=== PATIENT | female | born 1970 | race Caucasian/White ===

== ENCOUNTER 2016-10-30 12:16 | Day surgery (SDC) | payer OTHER ==
[2016-10-30] VITALS (7 sets, daily range): BP systolic 106–112; BP diastolic 57–71; PULSE 54–76; RESP 13–16; O2SAT 96–100
[~2016-10-30] VITALS: Ht 167.6 cm; Wt 84.0 kg
[~2016-10-30 12:16] MED LIST: MULT-1018 PO
[2016-10-30] MEDS ORDERED: EPHEDrine/NS 5 mg/mL 5 mL Syringe ONE (12:17)
[2016-10-30] MEDS ORDERED: Propofol 10,000 mCg/mL 20 mL Inj ONE (12:17)
[2016-10-30] MEDS ORDERED: fentaNYL-PF 50 mCg/mL 2 mL Inj ONE (12:17)
[2016-10-30] MEDS ORDERED: Ondansetron 2 mg/mL 2 mL Inj ONE (12:17)
[2016-10-30] MEDS ORDERED: IBUP800T28 PO (12:24)
[2016-10-30] MEDS: Lactated Ringer's 1,000 ML IV SCH ×3 (12:49→15:51)
[2016-10-30] MEDS ORDERED: Lactated Ringer's 500 ML IV PRN (14:39)
[2016-10-30] MEDS ORDERED: Lactated Ringer's 1,000 ML IV SCH (14:39)
--- NOTE | 2016-10-30 14:39 | PCM.HPANE ---
Patient Data Date of Service: October 30, 2016 Surgeon Admitting Provider: Attending Provider:Zee Siegel MD Primary Care Physician:Mark Rai MD Other Provider:Josh Coronado Anesthesia Reason for Visit Postcoital Bleeding, Friable Cervix Ht/WT & BMI Height (Feet): 5 Height (Inches): 6 Weight (Kilograms): 84 Body Mass Index 29.00 Allergies Coded Allergies: No Known Allergies (Unverified Allergy, Unknown, 04/15/14) Past Anesthesia History Anesthesia History: Denies:: Anesthesia Reactions Diabetes History Hx Diabetes?: No Medications Hypertension Medication: No Home Meds Incl Beta Juan: No Reported Medications Ibuprofen 800 Mg [id number] Mg PO TID PRN For Pain Ref 0 10/30/16 Multivitamin (Multi Vitamin Daily)1 Each Tablet1 Each PO DAILY 30 Days Ref 0 10/28/16 Discontinued Scripts Cyclobenzaprine 10 Mg Pavomd19 Mg PO TID PRN Spasm #12 TABLET Prov:Yang Ulloa DO 08/07/15 Ibuprofen 800 Mg [id number] Mg PO TID PRN For Pain #30 TABLET Ref 0 Prov:Yang Ulloa DO 08/07/15 History History of ENT Problems?: Yes HEENT History: Denies:: Abnormal Airway Difficult Intubation Denture Type: None Teeth Condition: Within Normal Limits Hx of Heart Problems?: No Cardiovascular History: Denies:: Chest Pain Coronary Artery Disease Hx of Respiratory Problem?: No Respiratory History: Denies:: Oxygen Administration Use of C-PAP Machine Hx Neurologic Problems?: No Hx of GI Problems?: No Hx of Problems?: No Genitourinary History: Denies:: Kidney Stones Urinary Tract Infection (prior hx of- not current) Female Hx: Denies:: Currently (TUBAL) Endometriosis Problems with Breasts? Hx Musculoskeletal Problems?: No Hx of Psycho/Social Problems?: No Hx Surgeries?: Yes (tubal) Hx Any Other Health Problems?: Yes Other History: Denies:: Cancer Thyroid Disease Hx Diabetes: No Hx Alcohol Use: NoHx Substance Use: No Smoking Status: Former Smoker Have You Smoked inLast 12 mo: No Stop/Bang Treated for Sleep Apnea?: No Do You Have a CPAP Machine?: No P-Blood Pressure: treated: No B- Body Mass Index > 35 kg/m2: No A- Age over 50: No N- Neck Large Circumference: No G- Gender Male: No KATIA Risk Assessment: Low Risk, <3 Yes Risk Assessment Category Category 1A: Patient has history of documented sleep apnea, and HAS NOT received any narcotic, sedative or anesthesia administration during this stay. Category 1B: Patient has history of documented sleep apnea, and HAS received any narcotic , sedative or anesthesia administration during this stay Category 2: Patient has SUSPECTED Obstructive Sleep Apnea, and HAS received any narcotic , sedative or anesthesia administration during this stay. Category 3: Patient has SUSPECTED Obstructive Sleep Apnea and HAS NOT received narcotic, sedative or anesthesia administration during this stay. Category 4: Outpatient in Procedural Areas with known sleep apnea or who screen positive for High Risk via the STOP/BANG questionnaire. Exam Exam Vital Signs Vital Signs Date Time Temp Pulse Resp B/P Pulse Ox O2 Delivery O2 Flow Rate FiO2 10/30/16 12:32 36.4 54 16 106/70 96 Room Air General Appearance: Alert, Oriented X3, Cooperative HEENT/AIRWAY: MP 1, Neck Movement, Mouth Opening Lungs: Clear to Auscultation, Normal Air Movement Heart: Regular Rate/Rhythm, Normal S1, Normal S2 Meds/Labs/Diagnostics Admission Meds Current Medications Lactated Ringer's (Lr) 1,000 ml @ 120 mls/hr [id number] IV Last administered on t 12:49; Start 10/30/16 at 05:00; Stop 10/30/16 at 13:19 Plan Impression Patient chart reviewed, patient interviewed and anesthestic plan with risks, benefits, and alternatives discussed, and informed consent obtained. NPO per Anesth. Guidelines: Yes ASA Physical Status: ASA1 Normal Healthy Anesthetic Plan: GA Bene/Risks/Altern/Consents: Yes HP Complete Prior to Induction: Yes Lonny Henson MD October 30, 2016 13:06
[2016-10-30] MEDS ORDERED: Dexamethasone 4 mg/mL Inj IVPUSH PRN (14:40)
[2016-10-30] MEDS ORDERED: fentaNYL-PF 50 mCg/mL 2 mL Inj IVPUSH PRN (14:40)
[2016-10-30] MEDS ORDERED: Labetalol 5 mg/mL 4 mL Inj IV PRN (14:40)
[2016-10-30] MEDS ORDERED: EPHEDrine Sulfate 50 mg/mL Inj IVPUSH PRN (14:40)
[2016-10-30] MEDS ORDERED: hydrALAZINE 20 mg/mL Inj IVPUSH PRN (14:40)
[2016-10-30] MEDS ORDERED: Atropine 0.4 mg/mL Inj IVPUSH PRN (14:40)
[2016-10-30] MEDS ORDERED: Ondansetron 2 mg/mL 2 mL Inj IVPUSH PRN (14:40)
[2016-10-30] MEDS ORDERED: HYDROmorphone 1 mg/mL Inj IVPUSH PRN (14:40)
[2016-10-30] MEDS ORDERED: Phenylephrine 10,000 mCg/mL Inj IVPUSH PRN (14:40)
[2016-10-30] MEDS ORDERED: MetoCLOpramide 5 mg/mL 2 mL Inj IVPUSH PRN (14:40)
--- NOTE | 2016-10-30 15:52 | PCM.ANEP1 ---
Post Anesthesia Phase 1 PACU Phase 1 Assessment Date of Service: October 30, 2016 Vital Signs PACU BP 112/70, HR 85, RR 10 T 36.3, 100% 10L Vital Signs Date Time Temp Pulse Resp B/P Pulse Ox O2 Delivery O2 Flow Rate FiO2 10/30/16 12:32 36.4 54 16 106/70 96 Room Air Anesthetic Administered: GA Level of Alertness: Awake, talking MICHAELS's with Equal Strength: No Pain: No Nausea or Vomiting: No Cardiovascular Function and Hy: Yes Oxygen Delivery: Simple Mask Lungs: Normal Air Movement Dermatome Level: Full Sensation Complications: No Follow up Care: No Patient Instructions Provided: Yes Lonny Henson MD October 30, 2016 15:52
--- NOTE | 2016-10-30 16:11 | PCM.DIOB ---
Obstetrical Disch Instruction Date of Service: October 30, 2016 Dates of Hospitalization Date of Hospital Admission Out Patient surgery Providers Admitting Physician: Primary Care Physician: Mark Rai MD Attending Physician: Zee Siegel MD Discharge Diagnosis Discharge Diagnosis Status post LEEP for friable Ectropion. Problems: Activity Discharge Activity-General: Pelvic Rest for 6 weeks (no sex, no douching nor tampons ), Be up and about, Activity as energy allows, No lifting >15 pounds for 2 weeks Dressing and Incisional Care Hygiene: May shower Additional Instructions Discharge Instructions It is normal to have yellow to black or coffee ground discharge. Follow Up Plan Follow-up Provider (F9): Zee Siegel MD Follow-up appointment: Weeks (Two) Call your provider for: Fever or Chills, Shortness of breath, Heavy vaginal bleeding, Heavy bleeding, Epigastric pain, Excessive constipation, Vaginal discomfort, Red painful breasts, Other (burning urination) Zee Siegel MD October 30, 2016 16:11
[2016-10-30] MEDS ORDERED: IBUP-1827 PO (16:13)
[2016-10-30] MEDS ORDERED: OXYC1TAB24 PO (16:13)
[2016-10-30] MEDS ORDERED: oxyCODONE-Acetamin 5-325 mg Tablet PO ONE ×2 (17:04→17:15)
--- NOTE | 2016-10-30 23:46 | OP ---
[address] [address] OPERATIVE REPORT PATIENT: LETICIA DIAZ : 1970 MR#: [id number] ADMIT: 10/30/2016 JOB ID: [id number] DATE OF SURGERY: 10/30/2016 PREOPERATIVE DIAGNOSIS(ES): 1. Postcoital bleeding secondary to friable ectropion. 2. Inadequate colposcopy. POSTOPERATIVE DIAGNOSIS(ES): 1. Postcoital bleeding secondary to friable ectropion. 2. Inadequate colposcopy. PROCEDURE IN DETAIL: Loop electrosurgical excision procedure. SURGEON: Zee Siegel MD. PREOPERATIVE DIAGNOSIS(ES): Dieter Harden MD. Newspaper Carrier was required for retraction and exposure. COMPLICATION: None. ANESTHESIA: General. IV FLUIDS: 900 mL. ESTIMATED BLOOD LOSS: 15 mL. URINE OUTPUT: Patient voided prior to the procedure. SPECIMEN: Endocervical curettings, cervical cone LEEP specimen. INDICATION: This is a 46-year-old 3, para 3, status post tubal ligation who presented with postcoital heavy bleeding. Colposcopy was performed September 29, 2016. Colposcopy was limited secondary to the bleeding. Biopsies taken from 7, 12, 11 o'clock and then ECC were all negative for dysplasia or malignancy. Pap smear was within normal limits and HPV negative. Pelvic ultrasound initially showed a thick endometrial stripe of 20 mm and endometrial biopsy showed late secretory phase endometrium. Repeat ultrasound showed a thin endometrial stripe of 9 mm, within normal limits. Gonorrhea and chlamydia screening was negative. Patient was discussed with Dr. Hillary Escoto, ADVERTISING REPRESENTATIVE oncologist at the [facility]. LEEP is indicated for both treating the symptoms and confirming the diagnosis with the pathology specimen. Risks, benefits and alternatives of the procedure were discussed with the patient in detail. Cauterization with ball cautery was discussed as an alternative approach to the LEEP. The patient desires to proceed with a LEEP procedure. Informed consent was signed. FINDINGS: Exam under anesthesia revealed a normal size uterus, anteverted, anteflexed approximately eight weeks in size. Mobile. No palpable adnexal masses. The cervix was painted with Lugol solution. Normal uptake throughout the cervix with slightly decreased uptake at the ectropion area of the cervix. PROCEDURE IN DETAIL: After informed consent was obtained, the patient was taken to the operation room. She was placed in supine position and placed under anesthesia. Then, she was placed in dorsal lithotomy position. She was prepped for a pelvic procedure. Heavy weighted speculum was placed in the posterior vaginal vault. Anterior retractor was used with good visualization of the cervix. The anterior cervical lip was grasped with single-tooth tenaculum. Then, the cervix was painted with Lugol solution. Overall good uptake of the Lugol solution throughout the cervix with a slight decrease in the uptake as the ectropion involved the area of the cervix. Size 2 x 0.8 cm loop electrode was used to excise the anterior part of the cervix at the area of the ectropion and a posterior specimen was excised and sent to the pathology with attention to include the entire ectropion line area. Then, endocervical curetting was performed followed by a roller ball cauterization of the excised cervical tissue bed. Hemostasis was ensured. The single-tooth tenaculum was removed. Insertion site was hemostatic Monsel solution was placed to ensure hemostasis. After the pass of the endocervical curette to ensure patency of the endocervical canal, all specimen was sent to Pathology. The anterior part of the specimen was marked at 12 o'clock with a long suture and the posterior part of the specimen was marked at 6 o'clock with a short suture. All instrument, needle and sponge counts were correct x2. Patient tolerated the procedure well without complication and was taken to the recovery room in stable condition. Zee Angel MD, was present and scrubbed for the entire procedure. KALYAN
--- NOTE | 2016-11-03 11:05 | PATH ---
SURGICAL PATHOLOGY Attending Physician:Zee Siegel CASE STATUS: Signed Out PATIENT NAME: LETICIA DIAZ PID: [id number] : 1970 DATE COLLECTED:10/30/2016 00:00 SPECIMEN: 1: Endocervix, Curettage 2: Cervical, Cone CLINICAL HISTORY: POST COITAL BLEEDING SECONDARY TO ECTROPION 1). ENDOCERVICAL CURETTAGE 2). CERVICAL DEEP CONE FINAL DIAGNOSIS: 1.ENDOCERVICAL CURETTAGE: FRAGMENTS OF SQUAMOUS EPITHELIUM AND ENDOCERVICAL EPITHELIUM, NEGATIVE FOR ATYPIA. 2.CERVICAL DEEP CONE BIOPSY: CERVICAL TISSUE FROM THE TRANSFORMATION ZONE WITH SEVERE CHRONIC ACTIVE CERVICITIS AND ENDOCERVICAL MUCOSAL EROSION. REACTIVE EPITHELIAL CHANGES, BUT NEGATIVE FOR SIGNIFICANT ATYPIA. ICD10 CODE N72 GROSS DESCRIPTION: The specimen is received in 2 parts. A. Received in formalin labeled "endocervical curettings". Specimen consists of multiple fragments of dark red-brown friable material, together measuring 1.5 x 1 x 0.1 cm. Specimen is submitted entirely in 1 cassette. B. Specimen received in formalin labeled "cervical deep cone". Specimen consists of two discrete pieces of tissue. One measures 2 x 1.2 x 0.5 cm in maximum depth oriented with a long suture marking the 12 o' clock position and other piece measures 2 x 0.7 x 0.3 cm in depth and it is marked with a short suture marking 6 o' clock position. The mucosal surface is slightly having multiple areas of erosions. The resection margin is inked and the specimen serially sectioned. Specimen submitted entirely as follows: (A) 12 to 3, (B) 3 to 6, (C) 6 to 9, (D) 9 to 12. Received also in the same container are multiple lr to bright red erythematous material, together measuring 1.0 x 0.3 x 0.1 cm. These are submitted entirely in cassette E. ([id number]) MICRO DESCRIPTION: See diagnosis. ICD-9 CODES: CPT CODES: 1: 07583 2: 88902 Electronically Signed Out Ramon Storm MD [facility] Pathology [facility] [address], [place] [address] Technical component performed at [facility], [address], [place], [address]
== END 2016-10-30 23:59 | disposition home or self-care (01) ==
LOC: SAS 12:16
PROVIDERS: ATTEND Obstetrics & Gynecology
DX: N72 Inflammatory disease of cervix uteri (principal); N93.0 Postcoital and contact bleeding; R10.2 Pelvic and perineal pain; Z87.891 Personal history of nicotine dependence
CPT/HCPCS: 57522; J1885; J2250; J2405; J3010; J7120

== ENCOUNTER 2017-01-05 14:37 | Emergency (ER) | payer OTHER ==
[~2017-01-05] VITALS: Ht 167.6 cm; Wt 82.3 kg
[~2017-01-05 14:37] MED LIST changes: +IBUP-1827 PO; +OXYC1TAB24 PO
[2017-01-05 14:55] VITALS: BP 114/66; PULSE 64; RESP 14; O2SAT 98
--- NOTE | 2017-01-05 17:21 | ED.REPORT ---
HPI-Extremity Problem Upper Date of Service Jan 05, 2017 ED Provider: Frederick Oliver PA-C Wendy is an otherwise healthy 46-year-old female presenting to the emergency department with a chief complaint of foreign body under her fingernail. Patient reports handling acorn squash at the grocery store when she felt a sliver go up under her left small fingernail. She attempted to remove it herself but the distal portion broke off in the proximal portion remains. Complains of some pain and tenderness. Denies comorbidities such as diabetes, HIV, immunosuppression. Nursing Notes Stated Complaint: SOMETHING UNDER FINGER NAIL Chief Complaint: Extremity Trauma Nursing Notes Reviewed: Yes Allergies: Coded Allergies: No Known Allergies (Unverified Allergy, Unknown, 04/15/14) Scheduled Cephalexin (Cephalexin) 500 Mg Tablet 500 MG PO QID Multivitamin (Multi Vitamin Daily) 1 Each Tablet 1 EACH PO DAILY oxyCODONE-Acetaminophen 5-325 mg (oxyCODONE-Acetaminophen 5-325 mg) 1 Each Tablet 1-2 TAB PO ONCE Scheduled PRN Ibuprofen (Ibuprofen) 600 Mg Tablet 600 MG PO QID PRN PRN For Pain General Time Seen by MD: 16:43 Chief Complaint Finger injury left 5 Past Medical History Past Medical History none Smoking History Former Smoker Social History Alcohol Use: Denies alcohol use Drug Use: Denies drug use Review of Systems Review of Systems Note: Negative unless stated otherwise in history of present illness Physical Exam General: Well appearing, well developed, well nourished, no acute distress. Left fifth finger: Roughly 0.5 x 1 cm green foreign body clearly visible beneath the nail. Minimal erythema, negative discharge or bleeding. Brisk capillary refill remains, sensation intact. Head: Atraumatic, normocephalic. Eyes: No scleral icterus or injection. No discharge. Vision grossly intact. ENT: Voice clear, hearing grossly intact. Respiratory: No respiratory distress, no increased work of breathing. Speaks in complete sentences. Skin: Warm and dry. Neurological: Grossly nonfocal. Psychological: alert and oriented. Speech appropriate, linear and logical. Behavior appropriate. Initial Vital Signs Vital Signs (First) Date Time Temp Pulse Resp B/P Pulse Ox O2 Delivery O2 Flow Rate FiO2 01/05/17 14:55 37.3 64 14 114/66 98 Room Air Normal Procedures Foreign body removal left fifth fingernail. Digital block is obtained as below. Area is prepped with chlorhexidine swab. Fingernail is bisected with scissors to the proximal fold, lateral aspect is pulled away from the nailbed and foreign body is removed. There is no obvious retained foreign body. The nose replaced and the incision is closed with Dermabond. Minimal bleeding, no complications. Patient tolerated procedure well. Digital Nerve Block Procedure Performed by: Allied health pract Indication: Foreign body removal Consent / Setup / Site Prep: Consent from patient, Hand hygiene observed Skin Preparation Agent: Hibiclens - Chlorhexidine Digit Involved: Little finger left Digital Block Procedure: Lidocaine 1%, 4cc, 27g needle, Dorsal approach, Anesthesia obtained Re-Eval/Medical Decision Med Decision/Clinical Course Otherwise healthy 46-year-old female presents with a piece of acorn squash Ginny embedded beneath her left fifth fingernail. No other complaints. Anesthesia was obtained with a digital block as above and foreign body is removed after bisecting the nail with scissors as above. Attempt at nail repair using Dermabond. I sent the patient with a prescription for Keflex 500 mg to be taken 4 times a day for 7 days showed infection develop, which I find be unlikely. I believe all the foreign body was removed. Advised regarding [id number] analgesia. Advised regarding primary care follow-up, provided emergency return precautions. Patient verbalized understanding of, and consent to, the plan. Discharge & Departure Impression: Primary Impression: Acute foreign body of fingernail Encounter type: initial encounter Qualified Code: S60.459A - Superficial foreign body of unspecified finger, initial encounter Disposition: Home Discharge Condition All VS Reviewed: Yes Condition: Stable Additional Instructions: Evaluation in the emergency department for a foreign body under fingernail includes interview and physical examination which reveals a small sliver of an acorn squash underneath your left small finger nail. We have numbness of the finger, cut the nail in half and removed the foreign body. The pain is best treated with 600 mg of ibuprofen (Advil, Motrin) every 6 hours , or 1000 mg of acetaminophen (Tylenol) every 6 hours. These drugs can be taken at the same time for more severe pain. While appears that we have removed all the foreign body, there is a possibility that there are some small particles still remaining. I will write a prescription for Keflex 500 mg be taken 4 times a day for 7 days. Save this prescription, and start taking it if you notice redness and pain and swelling increasing in in the finger in the coming days. Then follow up with your primary care provider. Return to the emergency department for new or worsening symptoms including signs of severe infection such as spreading redness, fever, chills, feeling ill. Referrals: Mark Rai MD (PCP) EDSupervising Provider for APC: Yang Ulloa DO Attending Statement I have seen and examined the patient. I have reviewed the chart and agree with the documentation as recorded by the Midlevel Provider, including assessment, treatment plan, and disposition. Findings from my exam are included in documentation above. copies to: Mark Rai MD, Seth PA-C Jan 05, 2017 17:20 Yang Ulloa DO Jan 05, 2017 19:08
[2017-01-05] MEDS ORDERED: CEPH500T PO (17:22)
[2017-01-05] MEDS ORDERED: Tissue Adhesive Liq (CS Supplied) TOPICAL ONE (17:25)
[2017-01-05 17:44] VITALS: PULSE 78; RESP 16
== END 2017-01-05 17:45 | disposition home or self-care (01) ==
LOC: SED 14:37
DX: S60.457A Superficial foreign body of left little finger, initial encounter (principal); W45.8XXA Other foreign body or object entering through skin, initial encounter; Y93.89 Activity, other specified; Y92.512 Supermarket, store or market as the place of occurrence of the external cause; Y99.8 Other external cause status; Z87.891 Personal history of nicotine dependence